=== PATIENT | female | born 1955 | race Caucasian/White ===

== ENCOUNTER → 2016-11-07 | Outpatient (CLI) | payer OTHER ==
--- NOTE | 2016-11-07 15:50 | RAD ---
Indication pain. PA and lateral views of the chest were obtained. No prior imaging of the chest is available. The heart and pulmonary vessels appear normal. The thoracic aorta is somewhat tortuous. There is no pleural fluid or pneumothorax. There are some degenerative changes in the lower thoracic spine. IMPRESSION: No acute or focal process is seen in the chest
== END | disposition home or self-care (01) ==
LOC: DXRAD 15:17
PROVIDERS: ATTEND Nurse Practitioner Family
DX: R07.81 Pleurodynia (principal)
CPT/HCPCS: 71020

== ENCOUNTER → 2020-07-19 | Outpatient (CLI) | payer MEDICARE ==
--- NOTE | 2020-07-20 17:09 | RAD ---
DATE: 07/19/2020 2:40 PM EXAM: MAMMO BRANDON SCREENING BILATERAL HISTORY: Screening COMPARISON: 03/20/2016 Bilateral CC and MLO views of the breasts were performed. Bilateral breast tomosynthesis was performed in CC and MLO projections. This study was interpreted with the benefit of Computerized Aided Detection (CAD). FINDINGS: Breast Density: FATTY The Breast Parenchyma is primarily fatty replaced. Breast parenchyma level density A. No suspicious masses, microcalcifications or architectural distortion is present to suggest malignancy in either breast. The visualized axillae are unremarkable. IMPRESSION: No mammographic evidence of malignancy. BI-RADS CATEGORY: 1 NEGATIVE RECOMMENDED FOLLOW-UP: 12M 12 MONTH FOLLOW-UP Annual screening mammography is recommended, unless clinically indicated sooner based on symptoms or change in physical exam. PQRS compliance statement: Patient information was entered into a reminder system with a target due date for the next mammogram. Mammography is a sensitive method for finding small breast cancers, but it does not detect them all and is not a substitute for careful clinical examination. A negative mammogram does not negate a clinically suspicious finding and should not result in delay in biopsying a clinically suspicious abnormality. "Our facility is accredited by the [employer] Mammography Program."
== END ==
LOC: MAMMO 14:29
PROVIDERS: ATTEND Nurse Practitioner Family
DX: Z12.31 Encounter for screening mammogram for malignant neoplasm of breast (principal)
CPT/HCPCS: 77063; 77067

== ENCOUNTER → 2020-08-22 | Outpatient (CLI) | payer MEDICARE ==
[~2020-08-22] MED LIST: ACET500T68 PO; CALC-495 PO; CHLO4TAB20 PO; CRESTOR20 MG PO; DIPH25CA58 PO; INDA2.5T PO; LISI20TA18 PO; MULT-650 PO; VITA400C37 PO; prednisone taper; vitamin C
== END ==
LOC: LAB 13:35
PROVIDERS: ATTEND Nurse Anesthetist, Certified Registered
DX: Z01.812 Encounter for preprocedural laboratory examination (principal); Z20.822 Contact with and (suspected) exposure to COVID-19
CPT/HCPCS: U0003; U0005

== ENCOUNTER → 2020-08-25 | Day surgery (SDC) | payer MEDICARE ==
[~2020-08-25] MED LIST changes: +IV RINGERS SOLUTION,LACTATED 1,000 ML IV SCH; +LIDOCAINE 2% PF 5 ML VIAL. ONE; +MIDAZOLAM HCL PF 2 MG/2 ML VIAL. IV ONE; +ONDANSETRON PF 4 MG/2 ML VIAL. IV PRN; +PROPOFOL 10,000 MCG/ML (20ML) VIAL IV ONE
[2020-08-25 12:01] VITALS: BP 132/81
== END | disposition home or self-care (01) ==
LOC: SURG 10:12
PROVIDERS: ATTEND Internal Medicine Gastroenterology
DX: Z12.11 Encounter for screening for malignant neoplasm of colon (principal); K57.30 Diverticulosis of large intestine without perforation or abscess without bleeding; K63.5 Polyp of colon; K63.89 Other specified diseases of intestine; K64.0 First degree hemorrhoids; I10 Essential (primary) hypertension; E78.00 Pure hypercholesterolemia, unspecified; Z79.899 Other long term (current) drug therapy; Z88.8 Allergy status to other drugs, medicaments and biological substances
CPT/HCPCS: 45380; 88305; J2001; J2704

== ENCOUNTER → 2020-09-26 | Outpatient (CLI) | payer MEDICARE ==
[2020-08-25 12:01] VITALS: BP 132/81
[~2020-09-26] MED LIST changes: -IV RINGERS SOLUTION,LACTATED 1,000 ML IV SCH; -LIDOCAINE 2% PF 5 ML VIAL. ONE; -MIDAZOLAM HCL PF 2 MG/2 ML VIAL. IV ONE; -ONDANSETRON PF 4 MG/2 ML VIAL. IV PRN; -PROPOFOL 10,000 MCG/ML (20ML) VIAL IV ONE
--- NOTE | 2020-09-27 12:28 | CARD ---
MR#: [id number] Date of Study: 09/26/2020 Ordering Physician: SAVI NESS, Referring Physician: SAVI NESS, Tech: Jenny William [facility] APPROVED REPORT EXAM: Two-dimensional and M-mode echocardiogram with Doppler and color Doppler. INDICATION Murmur RISK FACTORS Hypertension Hyperlipidemia 2D DIMENSIONS Left Atrium(2D)3.7 (1.6-4.0cm)IVSd1.1 (0.7-1.1cm) Aortic Root(2D)2.8 (2.0-3.7cm)LVDd4.4 (3.9-5.9cm) LVOT Diameter1.9 (1.8-2.4cm)PWd1.1 (0.7-1.1cm) LVDs2.2 (2.5-4.0cm)FS (%) 48.9 % SV69.3 mlLVEF(%)7.5 (>50%) Aortic Valve AoV Peak Triston.225.6cm/sAoV VTI40.0cm AO Peak GR.20.4mmHgLVOT Peak Triston.169.2cm/s LVOT VTI 32.13cmAO Mean GR.11mmHg ALVIN (VMAX)2.93qw6UOT (VTI)2.32cm2 Mitral Valve MV E Dhtgdmfs18.5cm/sMV E Peak Gr.6mmHg MV DECEL [id number] A Auocwuci375.1cm/s MV E Mean Gr.3mmHgE/A Ratio0.6 Pulmonary Valve PV Peak Dcsbcjwb74.2cm/sPV Peak Grad.4mmHg Tricuspid Valve TR P. [id number]/sRAP [id number] TR Peak Gr.67xvWlPLND54glTg LEFT VENTRICLE The left ventricle is normal size. There is mild concentric left ventricular hypertrophy. The left ve ntricular systolic function is normal and the ejection fraction is within normal range. The Ejection Fraction is 60-65%. There is normal LV segmental wall motion. Transmitral Doppler flow pattern is Gra de I-abnormal relaxation pattern. RIGHT VENTRICLE The right ventricle is normal size. There is normal right ventricular wall thickness. The right ventr icular systolic function is normal. ATRIA The left atrium size is normal. The right atrium size is normal. The interatrial septum is intact wit h no evidence for an atrial septal defect or patent foramen ovale as noted on 2-D or Doppler imaging. AORTIC VALVE The aortic valve is calcified but opens well. Doppler and Color Flow revealed trace aortic regurgitat ion. There is no significant aortic valvular stenosis. Calculated aortic valve area is 2.3 cm2 with m aximum pressure gradient of 21 mmHg and mean pressure gradient of 11 mmHg. MITRAL VALVE The mitral valve is normal in structure and function. There is no evidence of mitral valve prolapse. There is no mitral valve stenosis. Doppler and Color-flow revealed trace mitral regurgitation. TRICUSPID VALVE The tricuspid valve is normal in structure and function. Doppler and Color Flow revealed trace tricus pid regurgitation with an estimated PAP of 36 mmHg. There is no tricuspid valve stenosis. PULMONIC VALVE Doppler and Color Flow revealed trace pulmonic valvular regurgitation. There is no pulmonic valvular stenosis. GREAT VESSELS The aortic root is normal in size. The ascending aorta is mildly dilated measuring 3.7 cm. The IVC is normal in size and collapses >50% with inspiration. PERICARDIAL EFFUSION There is no evidence of significant pericardial effusion. Critical Notification Critical Value: No <Conclusion> The left ventricular systolic function is normal and the ejection fraction is within normal range. Th e Ejection Fraction is 60-65%. There is normal LV segmental wall motion. The ascending aorta is mildly dilated measuring 3.7 cm. Signed by : Sudeep Wan, Electronically Approved : 09/27/2020 12:27:49
== END ==
LOC: ECHO 12:24
PROVIDERS: ATTEND Nurse Practitioner Family
DX: I35.8 Other nonrheumatic aortic valve disorders (principal); I77.810 Thoracic aortic ectasia; I51.7 Cardiomegaly
CPT/HCPCS: 93306

== ENCOUNTER → 2021-01-11 | Outpatient (CLI) | payer MEDICARE ==
[2020-08-25 12:01] VITALS: BP 132/81
--- NOTE | 2021-01-11 13:50 | RAD ---
EXAM: XR FOOT_LEFT 3 VIEWS, XR KNEE 1-2 VIEWS 01/11/2021 9:41 AM CLINICAL INDICATION: Bilateral knee pain, arthritis. Foreign body in left foot COMPARISON: None TECHNIQUE: 2 views of the right left knee. 3 views of the left FINDINGS: Knees: On the left, there is tricompartmental joint space narrowing and osteophyte formation, greates t in medial compartment where it is moderate to severe. There are subchondral sclerosis in the medial compartment. No acute fracture or malalignment. No joint effusion. On the right, there is tricompartmental joint space narrowing and osteophyte formation, greatest in t he medial patellofemoral compartments where it is moderate. There is subchondral sclerosis in the med ial compartment. No acute fracture or malalignment. There is a small joint effusion and a possible in tra-articular body. Left foot: No acute fracture. Alignment is normal. There is moderate joint space narrowing with promi nent osteophytes at the great toe MTP joint. The remaining joint spaces are maintained. Tiny plantar calcaneal enthesophyte. There is a small ossified intra-articular body in the posterior tibiotalar angel int recess. There is a 2 mm linear radiopaque density projecting along the lateral aspect of the thir d metatarsal head on oblique view, indeterminate. IMPRESSION: 1. 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 2. 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 3. 2 mm linear radiopaque density just lateral to the third metatarsal head seen only on oblique view . This is indeterminate but a tiny foreign body is possible. Electronically signed by: Rosa Staples MD (01/11/2021 1:48 PM) [id number]
== END ==
LOC: RAD 09:26
PROVIDERS: ATTEND Nurse Practitioner Primary Care
DX: S90.852A Superficial foreign body, left foot, initial encounter (principal); M17.0 Bilateral primary osteoarthritis of knee; M19.072 Primary osteoarthritis, left ankle and foot; M25.762 Osteophyte, left knee; M25.761 Osteophyte, right knee; M25.461 Effusion, right knee; M25.862 Other specified joint disorders, left knee; M25.861 Other specified joint disorders, right knee; X58.XXXA Exposure to other specified factors, initial encounter; Y93.89 Activity, other specified; Y92.89 Other specified places as the place of occurrence of the external cause; Y99.8 Other external cause status
CPT/HCPCS: 73630; 73560-50